=== PATIENT | male | born 1990 | race Caucasian/White ===

== ENCOUNTER 2025-06-05 11:59 | Emergency (ER) | payer SELFPAY ==
[2025-06-05 12:00] VITALS: BP 121/87
--- NOTE | 2025-06-05 13:14 | ED.GENMED ---
History of Present Illness
General
Chief Complaint: Rectal Bleeding
Time Seen by Provider: 06/05/25 12:50
History of Present Illness
History of Present Illness:
34-year-old male presents to the emergency department for evaluation of rectal bleeding. He states he had a bowel movement today and then felt blood coming from the rectum. He also felt a sensation of his rectum prolapsing. He does admit to
sitting on the toilet for 15+ minutes when having bowel movements and frequently has felt the need to strain often during bowel movements. No prior history of rectal bleeding. Does not take blood thinners. No fevers chills or night sweats.
Review of Systems
Review of Systems
Allergies reviewed?: Yes
All Other Systems: ROS reviewed and negative except as documented in HPI and ROS
Phy Exam
Physical Exam
Physical Exam:
GEN: Well appearing, NAD, WDWN
HEENT: Oral mucosa moist, no scleral icterus
Cardiac: Regular rate
Lung: No respiratory distress, no tachypnea
Rectum: No gross blood in rectal vault, nonthrombosed hemorrhoid to the inferior right aspect of the anus tender to palpation, not actively bleeding
MSK: No gross deformity or injuries
Skin: Good color, no pallor or jaundice, no rashes
Neuro: AO x3, moves all extremities freely
Psych: Calm, cooperative
Course
Vital Signs
Initial and Last Documented VS:
Initial Vital Signs
Temp Pulse Resp BP Pulse Ox
97.6 F 92 18 121/87 96
06/05/25 12:00 06/05/25 12:00 06/05/25 12:00 06/05/25 12:00 06/05/25 12:00
Last Documented Vital Signs
Temp Pulse Resp BP Pulse Ox
97.6 F 92 18 121/87 96
06/05/25 12:00 06/05/25 12:00 06/05/25 12:00 06/05/25 12:00 06/05/25 13:18
MDM/Problems Addressed
MDM/Problems Addressed:
History and exam consistent with prolapsing external hemorrhoid. Will provide steroid suppository for supportive relief and discussed high-fiber diet and hygienic recommendations
*Pulse Oximetry
SaO2: 96
Oxygen Mode of Delivery: Room air
Patient hypoxic: no
*Critical Care Note
Total Time (30-74mins, 75-104mins- exclusive of procedures): Not Applicable
ED Attending Note
-
Portions of this chart may have been created with voice recognition software.� Occasional wrong word or��sound alike� substitutions may have occurred due to the inherent limitations of voice recognition software.
Discharge Plan
Departure
Patient Disposition: Home (Routine Discharge)
Date of Disposition: 06/05/25
Time of Disposition: 13:16
Patient with high blood pressure during this ER visit?: No
Discharge Problem:
External hemorrhoid
Instructions: Hemorrhoids (DC)
Prescriptions:
New
hydrocortisone acetate [Anusol-HC] 25 mg suppository
25 mg FL HS 7 Days Qty: 12 0RF
Referrals:
Bennie Silva MD [Active, ColoRectal] - As needed
Activity Restrictions/Additional Instructions:
Increase fiber to 25-35g daily
Minimize sitting time on toilet
Use witch alessandra medication wipes as needed for pain
Follow up with colorectal surgery if symptoms do not improve
Interventions
Interventions:
*Risk Screen - Suicide Last Done: 06/05/25 12:00
*General Assessment Last Done: 06/05/25 12:00
*Neglect/Abuse Screening Last Done: 06/05/25 12:00
*ED- Fall Risk Assessment Last Done: 06/05/25 13:16
*ED COVID-19 Vaccine History Last Done: 06/05/25 13:16
*Nursing Disposition Last Done: 06/05/25 13:21
QA-Srnrfy-Uvafeipnam Assessment Last Done: 06/05/25 13:16
ED- Cardiac Assessment Last Done: 06/05/25 13:16
ED- Pulmonary Assessment Last Done: 06/05/25 13:16
Discharge Date and Time
Discharge Date/Time: 06/05/25 13:21
Print Language: [place]
== END 2025-06-05 13:21 | disposition home or self-care (01) ==
LOC: EMR 11:59
PROVIDERS: EMERGENCY PHYSICIAN Emergency Medicine
DX: K64.8 Other hemorrhoids (principal)
CPT/HCPCS: 99282